=== PATIENT | male | born 1945 | race Caucasian/White ===

== ENCOUNTER → 2020-03-08 15:39 | Outpatient (CLI) | payer MEDICARE, SELFPAY ==
--- NOTE | 2020-03-08 | PROSBIL_PTH ---
PATIENT: SASHA PALACIOS LOC: [facility] U#:[id number] AGE/SX: 80/M ROOM: RE03/08/[address]: Dr. Martínez Luque MD : 1945 BED: DIS: SPEC #: [id number] RECD: 03/12/20 08:25 STATUS: SHAR MAMADOU #: [id number] MARGARITA: 03/08/20 00:[address]: Martínez Luque DEPT: SURGICAL PATHOLOGY RECD BY: Bandar Bolanos ENTERED: 03/12/20 08:26 SP TYPE: PROST BX KINJAL DR: No [facility] Tissues: A - PROSTATE RIGHT B - PROSTATE RIGHT C - PROSTATE RIGHT D - PROSTATE LEFT E - PROSTATE LEFT F - PROSTATE LEFT Procedures: PROSTATE BX HEADER OPERATION: Transrectal ultrasound-guided prostate biopsy and cystoscopy PRE-OP DIAGNOSIS: Elevated PSA TISSUE SUBMITTED: A - Right base, B - Right mid, C - Right apex, D - Left base, E - Left mid, F - Left apex MICROSCOPIC DIAGNOSIS A. Right prostate, base, core biopsy: Prostatic tissue, negative for malignancy. Focal mild chronic inflammation. B. Right prostate, mid, core biopsy: Prostatic tissue, negative for malignancy. C. Right prostate, apex, core biopsy: Prostatic tissue, negative for malignancy. Focal mild chronic inflammation. D. Left prostate, base, core biopsy: Prostatic adenocarcinoma. [place] grade: 3+3=6 Number of cores involved: 2/2 Proportion of tissue involved: <5% Perineural invasion: Not identified. Greatest tumor length: 0.1 cm See comment. E. Left prostate, mid, core biopsy: Atypical small acinar proliferation (LAMINE). See comment. F. Left prostate, apex, core biopsy: Prostatic adenocarcinoma. [place] grade: 3+4=6 Number of cores involved: 2/2 Proportion of tissue involved: ~40% Perineural invasion: Not identified. Greatest tumor length: 0.4 cm, discontinous Focal mild chronic inflammation. See comment. SJ:deven 03/13/20 COMMENT D, E & F - Immunohistochemistry ([id number]) supports the above diagnosis. Case has been reviewed in consultation with Dr. Yu who concurs with the above diagnosis. IDC:AM MICROSCOPIC DESCRIPTION Slides are reviewed. GROSS DESCRIPTION A - Received is one container designated prostate, right base. The specimen consists of two elongated fragments of light mathew-white soft tissue each measuring 1.5 cm in length and 0.1 cm in diameter. The specimen is totally submitted in one cassette. B - Received is one container designated prostate, right mid. The specimen consists of two elongated fragments of light mathew-white soft tissue each measuring 1.4 cm in length and 0.1 cm in diameter. The specimen is totally submitted in one cassette. C - Received is one container designated prostate, right apex. The specimen consists of two elongated fragments of light mathew-white soft tissue each measuring 1.3 cm in length and 0.1 cm in diameter. The specimen is totally submitted in one cassette. D - Received is one container designated prostate, left base. The specimen consists of two elongated fragments of light mathew-white soft tissue measuring 1.3 and 1.5 cm in length and 0.1 cm in diameter. The specimen is totally submitted in one cassette. E - Received is one container designated prostate, left mid. The specimen consists of two elongated fragments of light mathew-white soft tissue measuring 1.4 and 1.8 cm in length and 0.1 cm in diameter. The specimen is totally submitted in one cassette. F - Received is one container designated prostate, left apex. The specimen consists of two elongated fragments of light mathew-white soft tissue measuring 0.8 and 1.2 cm in length and 0.1 cm in diameter. The specimen is totally submitted in one cassette. / SJ:rg 03/12/20 TC:0 CPT: G0146
--- NOTE | 2020-03-08 | IMM_PTH ---
PATIENT: SASHA PALACIOS LOC: [facility] U#:[id number] AGE/SX: 80/M ROOM: RE03/08/[address]: Dr. Martínez Luque MD : 1945 BED: DIS: SPEC #: [id number] RECD: 03/13/20 13:36 STATUS: SHAR REQ #: [id number] MARGARITA: 03/08/20 00:[address]: Martínez Luque DEPT: IMMUNOHISTOCHEMISTRY RECD BY: Dalila Beaver ENTERED: 03/13/20 13:38 SP TYPE: IMMUNO OTHR DR: Priscilla [facility] Tissues: D - PROSTATE LEFT E - PROSTATE LEFT F - PROSTATE LEFT Procedures: 34BE12 (add) P40 (add) 34BE12 (initial) PHYSICIAN & INSTITUTION [place] [id number] SPECIMEN INFORMATION: Tissue Source: D - Left base, E - Left mid, F - Left apex Clinical Info: Elevated PSA Specimen Number: [id number] D-F CPT code: 67000, 70663 x5 METHODOLOGY: Deparaffinized sections of prefer/formalin-fixed tissue or PAP/DQ stained slides are incubated with monoclonal/polyclonal antibodies/oligonucleotide probes. Localization is made via biotin free immunoperoxidase method. Appropriate controls are performed and reacted as expected. Results on target cell population are indicated in the following table: RESULTS: ANTIBODY / CLONE RESULT Block D P40 (BC28) negative 34BE12 (34BE12) negative Block E P40 (BC28) negative 34BE12 (34BE12) negative Block F P40 (BC28) negative 34BE12 (34BE12) negative These tests were developed and their performance characteristics determined by [facility]. They may not have been cleared or approved by the U.[place]. Food and Drug Administration. The FDA has determined that such clearance or approval is not necessary. The above immunohistochemical/dualISH markers are ordered and reviewed by the Pathologist. INTERPRETATION: D. Left prostate, base, core biopsy: Adenocarcinoma E. Left prostate, mid, core biopsy: Focal atypical small acinar proliferation. F. Left prostate, apex, core biopsy: Adenocarcinoma. SJ:deven 03/14/20
--- NOTE | 2020-03-08 | PROSBIL_PTH ---
PATIENT: SASHA PALACIOS LOC: [facility] U#:[id number] AGE/SX: 80/M ROOM: RE03/08/[address]: Dr. Martínez Luque MD : 1945 BED: DIS: SPEC #: [id number] RECD: 03/12/20 08:25 STATUS: SHAR MAMADOU #: [id number] MARGARITA: 03/08/20 00:[address]: Martínez Luque DEPT: SURGICAL PATHOLOGY RECD BY: Bandar Bolanos ENTERED: 03/12/20 08:26 SP TYPE: PROST BX KINJAL DR: No [facility] Tissues: A - PROSTATE RIGHT B - PROSTATE RIGHT C - PROSTATE RIGHT D - PROSTATE LEFT E - PROSTATE LEFT F - PROSTATE LEFT Procedures: PROSTATE BX HEADER OPERATION: Transrectal ultrasound-guided prostate biopsy and cystoscopy PRE-OP DIAGNOSIS: Elevated PSA TISSUE SUBMITTED: A - Right base, B - Right mid, C - Right apex, D - Left base, E - Left mid, F - Left apex MICROSCOPIC DIAGNOSIS A. Right prostate, base, core biopsy: Prostatic tissue, negative for malignancy. Focal mild chronic inflammation. B. Right prostate, mid, core biopsy: Prostatic tissue, negative for malignancy. C. Right prostate, apex, core biopsy: Prostatic tissue, negative for malignancy. Focal mild chronic inflammation. D. Left prostate, base, core biopsy: Prostatic adenocarcinoma. Doyle grade: 3+3=6 Number of cores involved: 2/2 Proportion of tissue involved: <5% Perineural invasion: Not identified. Greatest tumor length: 0.1 cm See comment. E. Left prostate, mid, core biopsy: Atypical small acinar proliferation (LAMINE). See comment. F. Left prostate, apex, core biopsy: Prostatic adenocarcinoma. Doyle grade: 3+4=7 Number of cores involved: 2/2 Proportion of tissue involved: ~40% Perineural invasion: Not identified. Greatest tumor length: 0.4 cm, discontinuous Focal mild chronic inflammation. See comment. SJ:deven 03/13/20 COMMENT D, E & F - Immunohistochemistry ([id number]) supports the above diagnosis. Case has been reviewed in consultation with Dr. Yu who concurs with the above diagnosis. IDC:AM MICROSCOPIC DESCRIPTION Slides are reviewed. GROSS DESCRIPTION A - Received is one container designated prostate, right base. The specimen consists of two elongated fragments of light mathew-white soft tissue each measuring 1.5 cm in length and 0.1 cm in diameter. The specimen is totally submitted in one cassette. B - Received is one container designated prostate, right mid. The specimen consists of two elongated fragments of light mathew-white soft tissue each measuring 1.4 cm in length and 0.1 cm in diameter. The specimen is totally submitted in one cassette. C - Received is one container designated prostate, right apex. The specimen consists of two elongated fragments of light mathew-white soft tissue each measuring 1.3 cm in length and 0.1 cm in diameter. The specimen is totally submitted in one cassette. D - Received is one container designated prostate, left base. The specimen consists of two elongated fragments of light mathew-white soft tissue measuring 1.3 and 1.5 cm in length and 0.1 cm in diameter. The specimen is totally submitted in one cassette. E - Received is one container designated prostate, left mid. The specimen consists of two elongated fragments of light mathew-white soft tissue measuring 1.4 and 1.8 cm in length and 0.1 cm in diameter. The specimen is totally submitted in one cassette. F - Received is one container designated prostate, left apex. The specimen consists of two elongated fragments of light mathew-white soft tissue measuring 0.8 and 1.2 cm in length and 0.1 cm in diameter. The specimen is totally submitted in one cassette. / VINICIUS:deven 03/12/20 TC:0 CPT: G0146 ADDENDUM ADDENDUM ADDENDUM ADDENDUM ADDENDUM ADDENDUM ADDENDUM ADDENDUM ADDENDUM ADDENDUM ADDENDUM ADDENDUM ADDENDUM ADDENDUM ADDENDUM ADDENDUM ADDENDUM ADDENDUM ADDENDUM ADDENDUM ADDENDUM ADDENDUM ADDENDUM ADDENDUM ADDENDUM ADDENDUM 05/02/2020 11:09 ADDENDUM 05/02/2020 11:09 ADDENDUM 05/02/2020 11:09 ADDENDUM 05/02/2020 11:09 ADDENDUM 05/02/2020 11:09 This addendum is added to incorporate an outside pathology consultation report. The case was examined at [facility] (#[id number]) and the following diagnosis was rendered. A. Prostate, right base, core biopsy: Benign prostatic tissue. B. Prostate, right mid, core biopsy: Benign prostatic tissue. C. Prostate, right apex, core biopsy: Benign prostatic tissue. D. Prostate, left base, core biopsy: Prostatic adenocarcinoma, Doyle score 3+4=7 (Grade Group 2), involving 5-10% of 2/2 cores (1 mm tumor). Percentage of Doyle pattern 4 = 10% Cribriform morphology absent. E. Prostate, left mid, core biopsy: Atypical glands (atypical small acinar proliferation). F. Prostate, left apex, core biopsy: Prostatic adenocarcinoma, Doyle score 3+4=7 (Grade Group 2), involving 40-50% of 2/2 cores (4-5 mm tumor). Percentage of Carnegie pattern 4 = 25% Focal small cribriform morphology present. Please see complete above mentioned consultation report in EMR
== END ==
PROVIDERS: Referring Provider Urology; Visit Provider Urology
DX: R97.20 Elevated prostate specific antigen [PSA] (principal); Z80.42 Family history of malignant neoplasm of prostate
CPT/HCPCS: 88305; 88341; 88342; G0416